=== PATIENT | female | born 1950 ===

== ENCOUNTER 2016-11-10 12:26 | Inpatient (IN) | payer MEDICARE, OTHER ==
[2016-11-10] MEDS ORDERED: ALPRAZolam TAB* 0.25 MG PO PRN (16:44)
--- NOTE | 2016-11-10 19:21 | PN ---
Hospitalist Progress Note HOSPITALIST ADDENDUM Case reviewed and d/w A. Felipe ABEL. Case was accepted in transfer from [facility]. Mrs. Botello presented with c/o dizziness and episodes of unresponsiveness, transferred for seizure w/ u. Will pursue both syncope and seizure w/u at this time. Aware of great emotional burden (patient recently lost her ) that may be worsening her symptoms.
[2016-11-10 19:44] LABS: Hematocrit 41 % (35-47); Hemoglobin 13.7 g/dl (12.0-16.0); Mean Corpuscular HGB Conc 33 g/dl (31-36); Mean Corpuscular Hemoglobin 31 pg (27-31); Mean Corpuscular Volume 95 fL (80-97); Mean Platelet Volume 8 um3 (7.4-10.4); Red Blood Count 4.38 10^6/ul (4.0-5.4); Red Cell Distribution Width 14 % (10.5-15); White Blood Count 6.9 10^3/ul (3.5-10.8)
[2016-11-10 20:06] LABS: BUN/Creatinine Ratio 17.6 (8-20); Calcium 9.2 mg/dL (8.6-10.3); EGFR African American 101.3 (>60); EGFR Non-African American 78.8 (>60); Potassium 3.9 mmol/L (3.5-5.0)
[2016-11-10 20:09] LABS: Troponin I 0.01 ng/mL (<0.04)
--- NOTE | 2016-11-10 21:01 | RAD ---
HISTORY: Severe dizziness and syncope COMPARISONS: None TECHNIQUE: The following sequences were obtained of the head: Sagittal T1-weighted images, axial T2-weighted images, axial FLAIR images, axial susceptibility weighted images, axial T1-weighted images. Additionally, axial diffusion-weighted images were obtained with calculated apparent diffusion coefficients. FINDINGS: HEMORRHAGE/INFARCT: There is no hemorrhage or acute infarct. MASSES/SHIFT: There is no mass or shift. EXTRA-AXIAL SPACES/MENINGES: There are no extra-axial fluid collections. SULCI AND VENTRICLES: The sulci and ventricles are normal in size and position for the patient's stated age. CEREBRUM: There are multiple scattered small foci of elevated T2/FLAIR signal within the periventricular and subcortical white matter. BRAINSTEM: There is elevated T2/FLAIR signal within the pontine white matter. CEREBELLUM: There are no focal parenchymal abnormalities. The cerebellar tonsils are normal in size and position. SELLA: The sella is normal. PINEAL: The pineal region is clear. CP ANGLE/TEMPORAL BONES: The labyrinthine structures are grossly normal. VESSELS: Normal flow-voids are noted within the visualized vertebral vasculature. DIFFUSION ABNORMALITIES: There are no diffusion abnormalities. PARANASAL SINUSES/MASTOIDS: The paranasal sinuses are clear. ORBITS: The orbits are unremarkable. BONES AND SOFT TISSUE: No bone or soft tissue abnormalities are noted. OTHER: None IMPRESSION: THERE ARE MULTIPLE FOCI OF ELEVATED T2/FLAIR SIGNAL WITHIN THE PERIVENTRICULAR, SUBCORTICAL, AND PONTINE WHITE MATTER. WHILE THESE FINDINGS ARE NONSPECIFIC, THEY CAN BE SEEN THE SEQUELA OF PREVIOUS INFECTION OR INFLAMMATION, AND CHRONIC SMALL VESSEL ISCHEMIA. DEMYELINATING DISEASE IS ALSO WITHIN THE DIFFERENTIAL, BUT IS CONSIDERED LESS LIKELY IN THE ABSENCE OF THE APPROPRIATE CLINICAL PRESENTATION.
[2016-11-10] MEDS: Venlafaxine EXT RELEASE CAP* 37.5 MG PO SCH (21:25)
[2016-11-10] MEDS: Enoxaparin(*) 40 MG/0.4 ML SYR SUBCUT SCH (22:05)
[2016-11-10] MEDS: Iohexol 350* (CONTRAST) 500 ML MDV IV ONE ×2 (22:36→23:08)
[2016-11-10] MEDS ORDERED: Iohexol 350* (CONTRAST) 500 ML MDV IV ONE (22:55)
--- NOTE | 2016-11-10 22:56 | PN ---
Progress Note - Progress Note Note: Called to CT scanner for ABC alert for this inpatient, transferred from [place] for recurrent LOC. Apparently became unresponsive after contrast administration. She had spontaneous radial pulses, respirations of normal rate , and somewhat rhythmic vertical nystagmus for 60 seconds on my arrival. Blood glucose and vitals were all found to be WNL. Loaded on to stretcher to be returned to the floor, Dr. Simon of the medicine service arrived to assume/ continue care of this patient. This presentation thought by medicine to be similar to prior presentations.
--- NOTE | 2016-11-10 23:08 | RAD ---
HISTORY: Severe dizziness and syncope COMPARISONS: MRI of the brain dated November 10, 2016 TECHNIQUE: Multiple contiguous axial CT scans were obtained of the head before and after and of the neck After the administration of nonionic intravenous contrast timed to the systemic arterial phase of contrast enhancement. Coronal and sagittal multiplanar reformations are submitted for review. Multiple 3-D maximum intensity projection reconstructions are also submitted for review. FINDINGS: CTA NECK: AORTIC ARCH: There is a normal three-vessel branching pattern of the aortic arch. There is no ostial or proximal stenosis of the cephalic great vessels. RIGHT VERTEBRAL ARTERY: The right vertebral artery is patent along its course, without stenosis. LEFT VERTEBRAL ARTERY: The left vertebral artery is patent along its course, without stenosis. DOMINANCE: The right vertebral artery is dominant. RIGHT COMMON CAROTID ARTERY: The right common carotid artery is patent. The right carotid bifurcation occurs at C3-C4 RIGHT INTERNAL CAROTID ARTERY: There is atheromatous disease of the right carotid bifurcation, with approximately 30% short segment right internal carotid artery stenosis by NASCET criteria. RIGHT EXTERNAL CAROTID ARTERY: The right external carotid artery is unremarkable. LEFT COMMON CAROTID ARTERY: The left common carotid artery is patent. The left carotid bifurcation occurs at C3-C4 LEFT INTERNAL CAROTID ARTERY: There is atheromatous disease of the left carotid bifurcation, with approximately 40% short segment left internal carotid artery stenosis by NASCET criteria. LEFT EXTERNAL CAROTID ARTERY: The left external carotid artery is unremarkable. VENOUS CIRCULATION: The venous system is unremarkable. SALIVARY GLANDS: The parotid glands, submandibular glands, sublingual glands are normal. NASAL CAVITY/NASOPHARYNX: The nasal cavity and nasopharynx are normal. ORAL CAVITY/OROPHARYNX: The oral cavity and oropharynx are unremarkable. LARYNGEAL APPARATUS/HYPOPHARYNX: The laryngeal apparatus and hypopharynx are normal. UPPER AIRWAY/UPPER ESOPHAGUS: The visualized upper airway and esophagus are normal. LUNG APICES: The lung apices are clear. THYROID GLAND: The thyroid gland is normal. LYMPH NODES: There is no lymphadenopathy by size criteria. BONES AND SOFT TISSUES: No bone or soft tissue abnormalities are noted. CTA HEAD: INTRACRANIAL CIRCULATION: There is calcification of the cavernous segments of internal carotid arteries bilaterally, without significant stenosis. There is no aneurysm, vascular malformation, occlusion, or stenosis of the visualized intracranial circulation. The anterior communicating artery complex is clear. There is a origin of the left posterior cerebral artery. VENOUS CIRCULATION: The venous system is unremarkable. PERFUSION: There is no obvious parenchymal perfusion deficit. HEMORRHAGE/INFARCT: There is no hemorrhage or acute infarct. MASSES/SHIFT: There is no mass or shift. EXTRA-AXIAL SPACES: There are no extra-axial fluid collections. SULCI AND VENTRICLES: The sulci and ventricles are normal in size and position for the patient's stated age. CEREBRUM: There are no focal parenchymal abnormalities. BRAINSTEM: There are no focal parenchymal abnormalities. CEREBELLUM: There are no focal parenchymal abnormalities. PARANASAL SINUSES: The paranasal sinuses are clear. ORBITS: The orbits are unremarkable. BONES AND SOFT TISSUE: No bone or soft tissue abnormalities are noted. OTHER: There is no abnormal enhancement. IMPRESSION: 1. ATHEROMATOUS DISEASE. 2. THIS RESULTS IN BILATERAL INTERNAL CAROTID ARTERY STENOSIS MEASURING LESS THAN 50% BY NASCET CRITERIA. 3. NO ANEURYSM, VASCULAR MALFORMATION, OCCLUSION, OR STENOSIS OF THE VISUALIZED INTRACRANIAL CIRCULATION. CPT II Codes: 3100F
--- NOTE | 2016-11-11 01:46 | HP ---
ADMISSION HISTORY AND PHYSICAL: DATE OF ADMISSION: 11/10/16 PRIMARY CARE PROVIDER: Not listed. ADMITTING PROVIDER: PAGE Zuleta SUPERVISING PHYSICIAN: Amrita Walters MD* (report dictated by PAGE Zuleta). CHIEF COMPLAINT: Dizziness and syncope. HISTORY OF PRESENT ILLNESS: This is a 66-year-old female with a history of depression and IBS who was transferred from [facility] for recurrent episodes of dizziness, chest pain, and syncope. 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 Initial imaging including a CT of the brain, EKG, and preliminary labs were unremarkable and the patient was admitted for observation. She had no changes on telemetry, but was noted to be profoundly hypertensive. She was initially treated with clonidine and atenolol for her blood pressure management. Chest x- ray was also noted to be unremarkable and her recurrent troponins and repeat EKGs noted no changes. During the patient's time at [facility], she continued to have intermittent episodes of severe chest pain and at least 2 syncopal episodes. She was on telemetry during these episodes and there were no changes noted. The patient was transferred from [facility] for additional workup and speciality involvement. The patient unfortunately lost her partner of over 30 years a few months ago and has been struggling with his . She has been eating and drinking a very little and states that she has been having the symptoms described above since the time of his . She has been profoundly dizzy even at rest and has been having intermittent episodes of chest pain that lasts anywhere from 1 to 2 hours. They are generally substernal in nature and did not radiate. She does have some associated shortness of breath. She is unable to give any information in terms of how the chest pain maybe revoked or relieved. The patient was seen by her primary care provider about 6 weeks ago and started on Celexa for her depression. She did not note any improvement in her symptoms or her depression, but did state that it was causing sedation for her. While at [facility], her Celexa was discontinued and she was started on Effexor as well as p.r.n. Xanax. Also, she was started on atenolol and p.r.n. clonidine for blood pressure management. At the time of evaluation, the patient is complaining of ongoing chest pain and dizziness. She is able to communicate effectively; however, and she states that her symptoms are manageable. PAST MEDICAL HISTORY: Depression. PAST SURGICAL HISTORY: Cholecystectomy. HOME MEDICATIONS: Celexa 20 mg daily. MEDICATIONS FROM [facility]: Include: 1. Xanax 0.25 mg p.o. q.8 hours p.r.n. anxiety. 2. Aspirin 81 mg p.o. daily. 3. Atenolol 25 mg p.o. daily. 4. Effexor 37.5 mg p.o. b.i.d. FAMILY HISTORY: Father had a history of pancreatic cancer and mother of an acute [place]. SOCIAL HISTORY: The patient recently lost her domestic partner of over 30 years. No history of smoking or regular alcohol consumption. She lives at home alone at this time. REVIEW OF SYSTEMS: The patient denies any other associated symptoms including palpitations, cough, abdominal pain, nausea, vomiting, diarrhea, recent fevers, dramatic changes in weight, orthopnea, lower extremity edema, or abnormal rashes. PHYSICAL EXAMINATION GENERAL: This is a depressed-appearing middle-aged female, in no acute distress. She appears profoundly fatigued, lying in a dark room, and is minimally interactive, but does comply with all history questions and does provide more complex answers. VITAL SIGNS: Temperature 98.7 degrees Fahrenheit, pulse 69 beats per minute, respiratory rate 16 per minute, oxygen saturation 96% on room air, and blood pressure 165/62 mmHg. HEENT: Head is normocephalic and atraumatic. Mucous membranes are pink and moist. RESPIRATORY: Lungs are clear to auscultation without wheezes, crackles, or rhonchi. CARDIOVASCULAR: Heart has a regular rate and rhythm without murmurs, rubs, or gallops. ABDOMEN: Abdomen is soft and nontender to palpation. EXTREMITIES: Trace lower extremity edema is appreciated bilaterally. PSYCH: The patient is alert and appropriately oriented. SKIN: Limited exam, shows no rashes or lesions. DIAGNOSTIC STUDIES/LAB DATA: LABORATORY EVALUATION: Reviewed. Labs from [facility] from earlier today, which were largely unremarkable. The repeat labs are pending at this time. White blood cell count of 4700; hemoglobin of 12.3 g/dL; and platelet count of 163,000. INR normal at 0.9. Urinalysis from 11/07/16 is within normal limits. Basic metabolic panel from yesterday, 11/09/16, is unremarkable with a sodium of 140 mmol/L, potassium 3.9 mmol/L, BUN 15, creatinine 0.9, estimated GFR of 67 , rate of glucose was 201 g/dL, and calcium is 8.5. Toxicology screen at admission was also noted to be negative. IMAGING: CT of the head from [facility] was read as negative. Chest x- ray was also read as negative. These were not personally reviewed. EKG was reported as negative, but I do not see a tracing to refer to. ASSESSMENT AND PLAN: This is a 66-year-old female with a history of depression who was transferred from [facility] due to complaints of dizziness, chest pain, and frequent syncope. Etiology is not entirely clear, but she is suffering from severe depression and anxiety since the passing of her long-term domestic partner. 1. Syncope with recurrent dizziness and chest pain - preliminary evaluation was completed at [facility] including an EKG and troponin both of which were negative. We will order an echocardiogram, CTA of the chest as well as a CTA of the head and neck, and an MRI of the brain. We will also check orthostatic vital signs. We could consider neuro and/or cardiology consult depending on results. Labs were also ordered and currently pending including CBC , comprehensive metabolic panel, hemoglobin A1c, troponin, and D-dimer. 2. Hyperglycemia - random glucose from yesterday was noted to bed elevated. We will check a hemoglobin A1c to evaluate for chronic hyperglycemia indicating diabetes. 3. Depression and anxiety - suspect that her depression and anxiety is having a significant influence over her presenting symptoms. She was recently switched from Celexa to Effexor and does not seem to have any adverse effects from this and we will plan to continue at this time. The patient does not display any suicidal or homicidal ideations. No need for urgent psychiatric evaluation. 4. Hypertension - the patient has been profoundly hypertensive during her time at [place] [facility] and was treated with atenolol and p.r.n. clonidine. We will choose to use lisinopril instead of atenolol as the atenolol may also contribute to her depression and complaints of fatigue. This may need to be further titrated. 5. Code status - the patient is full code. 6. DVT prophylaxis - the patient will be placed on Lovenox 40 mg subcu daily for DVT prophylaxis and she is at moderate risk. 7. Health care proxy: Unknown. DISPOSITION: The patient is being admitted to our hospital for further evaluation and workup regarding syncope, chest pain, and dizziness after being transferred from [facility], where she was an inpatient there for 3 days. PAGE ZULETA [id number]/[facility] [place] #: [id number] MTDD
--- NOTE | 2016-11-11 07:38 | PN ---
Hospitalist Progress Note HOSPITALIST CAT NOTE CAT called around 7:15AM for unresponsive patient. Mrs. Botello is a 66yo F with PMH of depression, transferred from [facility] yesterday for further work up of episodes of unresponsiveness. She had a CAT last night for one episode that happened during CT brain. As per RN report , patient was unresponsive for 1 hour last night and later on woke up with no neurological deficits. Unclear when this episode started. This AM, her RN went to greet her and noticed patient was unresponsive, even to pain. Patient evaluated at bedside. Lying in bed with no grimacing, twitching, shaking or any other movements. Breathing is calm and easy. Did not respond to voice, touch or pain. HEENT: eyes closed, with palpebral resistance when I tried to open her eyes, no nystagmus, pupils are equal at 4mm and reactive to light. CVS: normal S1 and S2, RRR. Chest: BS+ bilaterally with no added sounds. Abd: soft, NT, BS+. Extremities: no edema. Neuro: unresponsive, does not follow commands, no Babinski. VS: 95/71 65 14 100% RA Glucose 112 Telemetry showed NSR at 66bpm during this episode. A/P: Episodes of unresponsiveness. - Stat EEG to r/o seizure activity during episode. - Neurology consult requested with Dr. Sargent. - Neuro checks. - Seizure precautions. - Will move patient to room closer to nursing station.
[2016-11-11] MEDS: Aspirin Low Dose CHEW TAB* 81 MG PO SCH (08:44)
[2016-11-11] MEDS: Lisinopril TAB* 10 MG PO SCH (08:44)
[2016-11-11] MEDS ORDERED: Iohexol 350* (CONTRAST) 500 ML MDV IV ONE (09:37)
--- NOTE | 2016-11-11 09:54 | ECHO ---
Patient: EDDI YEAGER [facility] Rec#: [id number] : 1950 Date: 11/11/2016 Age: 66y Height: 165.1 cm / 65.0 in Weight: 87.5 kg / 192.9 lbs Sex: F BSA: 2 Room#: 434 Admit Date#: 11/10/2016 Type: Inpatient Referring: Villa Wang Reading: Surjit Toscano MD Bulldozer Mechanic: Fany Haque RN RDCS Transthoracic Echocardiogram Indication: Syncope, chest pain BP: 90/70 HR: 58 Rhythm: NSR Findings History: Depression, recurrent syncope with chest pain and dizziness Technical Comments: The study is technically limited due to poor apical windows. The study is technically limited due to patient body habitus. Completed at 0855. Left Ventricle: The left ventricular chamber size is normal. Global left ventricular wall motion and contractility are within normal limits. There is normal left ventricular systolic function. The estimated ejection fraction is 60-65%. Normal left ventricular diastolic filling is observed. Left Atrium: The left atrial chamber size is normal. Right Ventricle: The right ventricular chamber size and systolic function are within normal limits. Right Atrium: The right atrial cavity size is normal. Aortic Valve: The aortic valve is trileaflet. The aortic valve leaflets are mildly thickened. There is no evidence of aortic regurgitation. There is no evidence of aortic stenosis. Mitral Valve: The mitral valve leaflets are mildly thickened. There is a trace of mitral regurgitation. There is no evidence of mitral stenosis. Tricuspid Valve: The tricuspid valve leaflets are normal. There is no evidence of tricuspid valve regurgitation. Pulmonic Valve: The pulmonic valve structure is not well visualized. There is a trace pulmonic regurgitation. There is no pulmonic stenosis. Pericardium: There is no significant pericardial effusion. A pericardial fat pad is visualized. Aorta: There is no dilatation of the ascending aorta. There is no dilatation of the aortic arch. The aortic root is normal in size. Pulmonary Artery: The main pulmonary artery is not well visualized. Venous: The inferior vena cava appears normal in size. There is less than 50% respiratory change in the inferior vena cava dimension. Summary: There was not any prior study for comparison. Conclusions The left ventricular chamber size is normal. The estimated ejection fraction is 60-65%. There is a trace of mitral regurgitation. There is a trace pulmonic regurgitation. There was not any prior study for comparison. Measurements Name Value Normal Range RVDdMajor (2D) 2.9 cm (2.2 - 4.4) RAd ISD 4CH 4.8 cm (3.4 - 4.9) RA (A4C)W 3.8 cm (2.9 - 4.6) IVSd (2D) 1 cm (0.6 - 1) LVPWd (2D) 1 cm (0.6 - 1) LVIDd (2D) 4.1 cm (3.6 - 5.4) LVIDs (2D) 2.8 cm - LV FS (2D) 33 % (25 - 45) Aortic Annulus 1.9 cm (1.4 - 2.6) Ao root diameter (2D) 2.5 cm (2.1 - 3.5) Ascending Ao 2.3 cm (2.1 - 3.4) Aortic arch 2.1 cm (1.8 - 3.4) LA dimension (AP) 2D 3.1 cm (2.3 - 3.8) LAd ISD 4CH 5 cm (2.9 - 5.3) LA ISD 4CH W 4 cm (2.5 - 4.5) Name Value Normal Range MV E-wave Vmax 0.7 m/sec - MV deceleration time 240 msec - MV A-wave Vmax 0.88 m/sec - MV E:A ratio 0.8 ratio - LV septal e' Vmax 0.07 m/sec - LV lateral e' Vmax 0.1 m/sec - LV E:e' septal ratio 10 ratio - LV E:e' lateral ratio 7 ratio - Name Value Normal Range AV Vmax 1.7 m/sec - LVOT Vmax 1.2 m/sec - SIDNEY Vmax 0.6 m/sec - Name Value Normal Range IVC diameter 1.8 cm - Name Value Normal Range PV Vmax 0.91 m/sec -
--- NOTE | 2016-11-11 10:29 | RAD ---
INDICATION: Chest pain. COMPARISON: None. TECHNIQUE: Multidetector CT images were obtained from the lung apices to the upper abdomen with 75 mL Omnipaque 350 IV contrast. Pulmonary angiogram protocol. Multiplanar reformation including with maximum intensity projection. REPORT: Clear lungs and pleural spaces. Negative for pneumothorax. 0.5 cm short axis prevascular lymph node within normal size limits. 0.8 cm short axis subcarinal lymph node within normal size limits. Negative for thoracic lymphadenopathy. Negative for cardiomegaly or pericardial effusion. Normal diameter thoracic aorta with minimal atherosclerotic plaque. Negative for dissection of the thoracic aorta. No filling defects are identified from the main to the subsegmental pulmonary arteries to indicate presence of a pulmonary embolism. Unremarkable Limited images through the upper abdomen. Negative for suspicious thoracic osseous lesions. IMPRESSION: No evidence for pulmonary embolism or other acute intrathoracic disease.
--- NOTE | 2016-11-11 13:14 | PN ---
Subjective Date of Service: 11/11/16 Interval History: This is a 66 yo female with h/o depression transferred from [facility] for recurrent episodes of LOC with c/o dizziness and chest pain. EKG, trop, CT head , and CXR neg at [place]. Ordered complete neuro and cardiac workup upon arrival last night that so far has been unrevealing. Patient has had multiple unresponsive episodes (at least 3) overnight. EEG completed during one this am which is neg for epileptic activity. Patient has been complaining of r sided pain, but no CP today but has been persistently dizzy. Objective Active Medications: Alprazolam (Xanax Tab*) 0.25 mg PO Q8H PRN PRN Reason: ANXIETY Aspirin (Aspirin Low Dose Tab*) 81 mg PO DAILY [facility] Last Admin: 11/11/16 08:44 Dose: 81 mg Enoxaparin Sodium (Lovenox(*)) 40 mg SUBCUT Q24H [facility] Last Admin: 11/10/16 22:05 Dose: 40 mg Lisinopril (Prinivil Tab*) 10 mg PO DAILY [facility] Last Admin: 11/11/16 08:44 Dose: 10 mg Tramadol HCl (Ultram*) 50 mg PO Q6H PRN PRN Reason: PAIN Venlafaxine HCl (Effexor Xr Cap*) 37.5 mg PO BID [facility] Last Admin: 11/10/16 21:25 Dose: Not Given Vital Signs: Temp Pulse Resp BP Pulse Ox 99.2 F 68 16 150/80 99 11/11/16 11:20 11/11/16 11:20 11/11/16 11:20 11/11/16 11:42 11/11/16 11:20 Oxygen Devices in Use Now: None Appearance: Patient is lying comfortably in bed, unresponsive to stimuli Neck: NL Appearance and Movements; NL JVP Respiratory: Symmetrical Chest Expansion and Respiratory Effort, Clear to Auscultation Cardiovascular: NL Sounds; No Murmurs; No JVD, RRR Abdominal: NL Sounds; No Tenderness; No Distention Extremities: No Edema Skin: No Rash or Ulcers Neurological: - - no tremor, some resistance to ROM and manipulation, otherwise unresponsive Result Diagrams: 11/10/16 19:20 11/10/16 19:20 Diagnostic Imaging: CTA head/neck - bilateral IC stenosis, <50%, otherwise nl CTA chest - no PE or other abnormality EEG - neg TTE - unremarkable, LVEF - 50-55%, no valvular dz MRI brain - chronic ischemic changes v demyelinating dz EKG Data: NSR Assess/Plan/Problems-Billing Assessment: This is a 66 yo female with h/o depression transferred from [place] for recurrent episodes of LOC with dizziness and CP. - Patient Problems (1) Syncope Comment: Unclear etiology, w/u has been negative including MRI brain, CTA head, neck and chest, echo and EEG Dr Sargent consulted from neurology who does not believe there is a neurologic explanation for these episodes, no evidence of cardiac compromise or a metabolic process Symptoms started after her passing of her , suspect these may be psychogenic in origin, requested psychiatric consultation (2) Chest pain Comment: No evidence of ACS or other life threatening condition (3) Dizziness (4) Depression Comment: Started on Celexa ~4 weeks ago without improvement and was c/o fatigue Switched to Effexor ~3 days ago (5) Hypertension Comment: Still moderately hypertensive Cont lisinopril (6) Hyperglycemia Comment: Noted random glucose >200 mg/dl from [facility] labs HgbA1c 5.9% Status and Disposition: W/u neg thus far. Pending psychiatric consult, suspect psychogenic component
[2016-11-11] MEDS: traMADol TAB* 50 MG PO PRN (13:22)
--- NOTE | 2016-11-11 14:56 | RAD ---
INDICATION: Right knee injury. TECHNIQUE: 4 views of the right knee were obtained. FINDINGS: The bones are in normal alignment. No joint effusion or fracture is seen. There is moderate to severe joint space narrowing and hypertrophic change present around the medial compartment consistent with moderate to severe osteoarthritic change. There is mild osteoarthritic change in the patellofemoral and lateral compartments. IMPRESSION: 1. NO EVIDENCE FOR FRACTURE. 2. MODERATE TO SEVERE OSTEOARTHRITIC CHANGE.
--- NOTE | 2016-11-11 16:52 | CONS ---
CONSULTATION NOTE: DATE: 11/11/2016. PATIENT OF: Dr. Walters. HISTORY: This is a 66-year-old woman I am asked to evaluate for unresponsive episodes. Of note, her long-term boyfriend of 32 years within the past month and she has been, by her own words very depressed by this and worried as well about financial and other practical issues. 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 She had a negative workup there including CT scan of the brain and EKG and was found to be significantly hypertensive. She has had continued intermittent chest pain and at least 2 unresponsive episodes and she was transferred here yesterday and has had least 2 unresponsive episodes here including one during EEG where it appeared she was just asleep in bed but not responsive to vigorous noxious stimulation including sternal rub. PAST MEDICAL HISTORY: Her past history is significant for depression, cholecystectomy. MEDICATIONS: Her medications at home include Celexa 20 mg daily. She was also at [facility] on: Aspirin 81 mg daily. Atenolol 25 daily. Effexor 37.5 b.i.d. Xanax 0.25. FAMILY HISTORY: Father had pancreatic cancer and the mother of an acute MD. SOCIAL HISTORY: She does not smoke, use drugs or alcohol. REVIEW OF SYSTEMS: Negative in all 14 spheres other than the HPI. PHYSICAL EXAM: Temperature 98.2, pulse 60, respirations 15, blood pressure currently 90/71. She is alert and oriented with normal speech and comprehension. Cranial nerves II through XII were intact. Fundi were benign. Motor exam revealed normal tone. Strength, coordination and sensation intact to light touch. Reflexes were 2 and equal. Downgoing toes. Chest: Clear. Cardiovascular: Regular rate and rhythm. Abdomen is soft with positive bowel sounds. There is no rash or edema. DIAGNOSTIC STUDIES/LAB DATA: She had an MRI scan showing some diffuse white matter disease. Her EEG during an episode where she was unresponsive to noxious stimuli including sternal rub and then towards the end of EEG woke up and there was no change in background. It appeared to be normal, awake, alpha rhythm throughout the tracing. Her CTA showed some less than 50% carotid stenosis bilaterally and intracranially it appeared normal. CBC was normal. D-dimer was 289. BMP was normal other than a glucose of 128 initially. Toxicology at [facility] was negative. INR was normal at [facility]. PLAN: Her current unresponsive episodes by description and also by EEG would be most consistent with a psychogenic etiology and given her depression, it would be reasonable to have the Psych involved and I would not treat for seizures or other issues. Her other neurological concern is her MRI scan, which shows white matter disease of a nonspecific pattern more likely to be some chronic vascular disease or possibly demyelination. She has no history of demyelination and in the absence of clinical history, I do not think she has MS. I will check vitamin D level, sed rate, CANDY, anticardiolipin antibody for things that would predispose to edema or could mimic an MS picture. I would also continue her on the aspirin and sort out whether she has ongoing hypertension. Thank you for sharing her case. [id number]/[facility] #: [id number] GRETCHEN
[2016-11-11] MEDS ORDERED: Morphine INJ* 4 MG/ML 1 ML CARPUJECT IV PRN (17:10)
[2016-11-11] MEDS ORDERED: Ondansetron INJ* 2 MG/ML VIAL IV PRN (17:11)
--- NOTE | 2016-11-11 17:32 | CONS ---
CONSULTATION REPORT: DATE OF CONSULT: 11/11/2016. ATTENDING PHYSICIAN: PAGE Spann CONSULTING PROVIDER: Logan Palmer MD, Psychiatry. REASON FOR CONSULT: The patient admitted with unexplained syncopal events. Question is to rule out psychiatric etiology for physical symptoms. HISTORY OF PRESENT ILLNESS: The patient is a 66-year-old single white female with no prior psychiatric history, who was transferred from [facility] on 11/10/16 for further diagnostic workup of unexplained syncopal events. The patient is reporting that for the past month and a half, she has been having almost daily episodes of dizziness followed by chest pain and instances where she loses consciousness. Since admission to the hospital, she has had an extensive workup including EEG, electrocardiogram, head CT and other diagnostic studies, which have at this point ruled out organicity. The further history that I am gathering from the patient is that her boyfriend, with whom she was together with for 32 years, unexpectedly of a heart attack on September 20. 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 When he , she was shocked and allegedly stopped eating and lost 30 pounds within the first month, although since then her appetite has somewhat stabilized. The patient goes on to state that in early October she did have some brief suicidal ideations when looking at his multiple bottles of pills, she had thoughts of overdosing on his medications. Some mutual friends of theirs actually went to their home and got rid of these medications. The patient does admit to me that she has 2 weapons at home, one is a shotgun and one is an antique musket. She does deny at this point having any further suicidal ideations and has not since early October. A further complicating stressor is that she has financial problems now that he is gone; she can no longer rely on his income and they have several unpaid debts. She does have support in the area including her boyfriend's 5 children. She also has 1 brother who lives locally who is supportive, as well as several friends who used to travel with her between [place] and [place] with whom she has been regularly visiting. When asked about symptoms of depression, she does endorse dysthymia, difficulty maintaining sleep, anhedonia, guilt over not doing more for her boyfriend, lack of energy, poor concentration, decreased appetite, psychomotor retardation, and anxiety. Once again, she denies suicidal or homicidal ideations. PAST PSYCHIATRIC HISTORY: The patient never had any history of psychiatric treatment until approximately 6 weeks ago when she saw her primary care provider who recommended she start taking Celexa. She has taken it faithfully but indicates that she never felt much benefit from it and did experience unwelcome sedation. It is notable that this was discontinued at [facility] and they placed her on a trial of Effexor 37.5 mg p.o. daily. The patient has no formal history of suicide attempts, has never been violent. She denies history of abuse. Denies history of traumatic brain injury. PAST MEDICAL HISTORY: The patient has a history of cholecystectomy and irritable bowel syndrome. SUBSTANCE ABUSE HISTORY: She used to smoke cigarettes in high school but has not since the early 70s. She does not abuse alcohol or illicit drugs. FAMILY HISTORY: Positive for some type of emotional breakdown that the patient' s mother had several years ago when her stepfather . This was in approximately 2004. The patient's mother has since . SOCIAL HISTORY: The patient grew up in [place], which is in [facility]. She currently lives in [place], [place]. She was never and never had children. She graduated high school and then went to work for several places, most recently [employer], which is where she met her boyfriend. The two of them were together for 32 years as previously mentioned. The patient's parents were never . She is the oldest of 4 children. She has no history of legal problems, service. She is not amish. She does have 2 dogs at home that she enjoys taking care of. Prior to her boyfriend's , they used to enjoy fishing and camping together. MENTAL STATUS EXAM: The patient is an aging white female, who is lying supine in bed, hooked up to a pulse oximeter. She is calm, polite, cooperative, and it is fairly easy to establish a rapport with her. At times, she does smile and laugh and her sense of humor does seem to be intact. Speech has a normal rate, tone, and volume. Mood is depressed with a constricted affect. Thought process is linear and goal directed. Thought content is significant for her grief over the loss of her boyfriend. She is denying suicidal or homicidal ideation. She denies auditory or visual hallucinations. Insight and judgment appear to be fair given her willingness to follow through with antidepressant therapy. Cognitively, she is awake and alert with what appeared to be an average intellect. DIAGNOSES: [place] I: Major depressive disorder, single episode, severe without psychotic features; Complex Bereavement. [place] II: Deferred. [place] III: Irritable bowel syndrome, history of cholecystectomy, atypical chest pain, syncope of unknown origin. ASSESSMENT: The patient is a 66-year-old single white female with a significant recent loss of her long-term boyfriend, who presents to the hospital with unusual symptoms of dizziness, syncope, and chest pain, which are occurring almost daily. The question is whether these events, which do not appear to be organic might be secondary to a psychiatric problem. It is not unusual in the literature on complex bereavement for people to have similar symptoms. I do believe at this time that she also has major depressive disorder and associated symptoms of anxiety. Recommendations to primary team: The patient is neither suicidal nor homicidal and I do not believe that she would benefit from psychiatric inpatient hospitalization and she is refusing this anyway. I do think that she would benefit from followup treatment. Apparently, she is a resident in [facility] and I think the primary social work staff should arrange followup with mental health counseling and psychotropic management. For the time being, I do not think that alprazolam is a good choice. It is more likely that a longer acting benzodiazepine such as Valium, which can be given either 2.5 or 5 mg on an as-needed basis would be more helpful. I would also recommend increasing Effexor from 37.5 to 75 mg daily as she is more likely to get a therapeutic benefit at this dose. While I think she is psychiatrically safe to go home, I do think she will need support. Both her friends and her brother who are involved are potential sources of support for this patient and I am recommending that social work services contact them. Psychiatry is signing off at this time. My pager number is [phone] if the primary team has any further questions. Once again, thank you for allowing me to participate in the care of this very friendly but very unfortunate patient. [id number]/[facility] #: [id number] GRETCHEN
[2016-11-11] MEDS ORDERED: Diazepam TAB(*) 5 MG PO PRN (18:39)
[2016-11-11] MEDS: Venlafaxine EXT RELEASE CAP* 37.5 MG PO SCH (19:14)
[2016-11-11] MEDS: Enoxaparin(*) 40 MG/0.4 ML SYR SUBCUT SCH (20:06)
[2016-11-12] MEDS: traMADol TAB* 50 MG PO PRN ×4 (00:02→21:42)
--- NOTE | 2016-11-12 00:54 | EEG ---
ELECTROENCEPHALOGRAPHY: DATE: 11/11/2016. PATIENT OF: Amrita Walters MD HISTORY: This is a 66-year-old woman being evaluated for recent repeated episodes of unresponsiveness. This study was done to rule out seizures. MEDICATIONS: Include: 1. Aspirin. 2. Prinivil. 3. Effexor. 4. Lovenox. 5. Xanax. 6. Ultram. INTERPRETATION: During the start of this tracing, the patient is described by the materials engineering technician as unresponsive with eyes closed and not moving including to noxious stim; however, during the portions of the tracing where the patient appeared unresponsive clinically, background cerebral activity consisted of moderate amplitude posterior dominant 8 Hz rhythm. During the tracing, the patient appeared to wake up and talk. There was no change in background cerebral activity during this tracing, but it did not matter what the apparent clinical status of the patient was. The patient never fell asleep. No activation procedures were done. No epileptiform potentials, focal abnormalities, or major asymmetries of background are noted. IMPRESSION: This EEG demonstrates normal awake background both during the time towards the end of tracing where the patient appears awake as well as during the time when the patient did not open eyes and appeared unresponsive to noxious stimulation. [id number]/[facility] #: [id number] [facility]
[2016-11-12] MEDS: Lisinopril TAB* 10 MG PO SCH (07:32)
[2016-11-12] MEDS: Venlafaxine EXT RELEASE CAP* 75 MG PO SCH (07:32)
[2016-11-12] MEDS: Aspirin Low Dose CHEW TAB* 81 MG PO SCH (07:32)
[2016-11-12] MEDS ORDERED: Diazepam TAB(*) 5 MG PO ONE (09:00)
[2016-11-12] MEDS: Morphine INJ* 2 MG/ML 1 ML CARPUJECT IV PRN ×2 (10:35→16:05)
--- NOTE | 2016-11-12 12:17 | RAD ---
INDICATION: Abdominal pain. COMPARISON: There are no prior studies available for comparison. TECHNIQUE: Frontal supine films of the abdomen were obtained. FINDINGS: The small bowel and colon appear nondistended. Contrast is seen within the urinary bladder from a prior CT angiogram of the chest which was performed one day earlier. IMPRESSION: NO EVIDENCE FOR OBSTRUCTION.
[2016-11-12] MEDS ORDERED: Iohexol 300* (CONTRAST) 10 ML SDV IV ONE (13:27)
[2016-11-12] MEDS ORDERED: Docusate CAP* 100 MG PO PRN (16:43)
--- NOTE | 2016-11-12 16:48 | PN ---
Subjective Date of Service: 11/12/16 Interval History: Patient continues to complain of dizziness. Some mild CP. She had 2 unresponsive episodes overnight, none today. She has been complaining of severe cramping abdominal pain intermittently. No n/v. The abdominal pain is a new complaint starting yesterday afternoon. She states it is similar to her IBS symptoms, but more severe. Objective Active Medications: Aspirin (Aspirin Low Dose Tab*) 81 mg PO DAILY [facility] Last Admin: 11/12/16 07:32 Dose: 81 mg Diazepam (Valium Tab(*)) 5 mg PO Q6H PRN PRN Reason: ANXIETY Enoxaparin Sodium (Lovenox(*)) 40 mg SUBCUT Q24H [facility] Last Admin: 11/11/16 20:06 Dose: 40 mg Lisinopril (Prinivil Tab*) 10 mg PO DAILY [facility] Last Admin: 11/12/16 07:32 Dose: 10 mg Morphine Sulfate (Morphine Inj (Syringe)*) 2 mg IV Q4H PRN PRN Reason: PAIN - MILD Last Admin: 11/12/16 16:05 Dose: 2 mg Ondansetron HCl (Zofran Inj*) 4 mg IV Q4H PRN PRN Reason: NAUSEA Tramadol HCl (Ultram*) 50 mg PO Q6H PRN PRN Reason: PAIN Last Admin: 11/12/16 13:06 Dose: 50 mg Venlafaxine HCl (Effexor Xr Cap*) 75 mg PO DAILY [facility] Last Admin: 11/12/16 07:32 Dose: 75 mg Vital Signs: Temp Pulse Resp BP Pulse Ox 97.9 F 84 16 130/51 94 11/12/16 15:31 11/12/16 15:00 11/12/16 16:05 11/12/16 15:00 11/12/16 15:00 Oxygen Devices in Use Now: None Appearance: Well appearing, brighter affect Respiratory: Symmetrical Chest Expansion and Respiratory Effort Cardiovascular: NL Sounds; No Murmurs; No JVD, RRR Abdominal: NL Sounds; No Tenderness; No Distention Extremities: No Edema Skin: No Rash or Ulcers Neurological: Alert and Oriented x 3 Result Diagrams: 11/10/16 19:20 11/10/16 19:20 Diagnostic Imaging: CTA head/neck - bilateral IC stenosis, <50%, otherwise nl CTA chest - no PE or other abnormality EEG - neg TTE - unremarkable, LVEF - 50-55%, no valvular dz MRI brain - chronic ischemic changes v demyelinating dz XR abd - NAD CT abd/pevis - pend EKG Data: NSR Assess/Plan/Problems-Billing Assessment: This is a 66 yo female with h/o depression transferred from [facility] for recurrent episodes of LOC with dizziness and CP. - Patient Problems (1) Syncope Comment: Likely psychogenic, psychiatry recommended increasing Effexor and use of a long acting benzo W/u has been negative including MRI brain, CTA head, neck and chest, echo and EEG Dr Sargent consulted from neurology who does not believe there is a neurologic explanation for these episodes, no evidence of cardiac compromise or a metabolic process Symptoms started after her passing of her Some improvement noted since starting Valium (2) Chest pain Comment: No evidence of ACS or other life threatening condition (3) Dizziness (4) Abdominal pain Comment: Abdominal pain is a new complaint XR of the abd is neg for obstruction CT abd/pelvis pending May be her IBS/constipation (5) Depression Comment: Started on Celexa ~4 weeks ago without improvement and was c/o fatigue Switched to Effexor while at [facility] Psych recommends increasing dose to 75 mg (6) Hypertension Comment: Normotensive today Cont lisinopril (7) Hyperglycemia Comment: Noted random glucose >200 mg/dl from [facility] labs HgbA1c 5.9% Status and Disposition: W/u neg thus far. Appears symptoms are psychiatric in origin. Some improvement today. Patient lives alone and is not safe to return home alone as long as she is having intermittent episodes. One of her step daughters is available to stay with her time piece repairer starting Tuesday and which point she can return home.
--- NOTE | 2016-11-12 16:58 | RAD ---
CLINICAL HISTORY: Severe abdominal pain COMPARISON: KUB dated November 12, 2016 TECHNIQUE: Multiple contiguous axial CT scans were obtained of the abdomen after the administration of intravenous contrast. Coronal and sagittal multiplanar reformations are submitted for review. FINDINGS: LUNG BASES: The lung bases are clear. LIVER: The liver is normal in shape, size, contour, and attenuation. BILE DUCTS: There is no intrahepatic or extrahepatic biliary dilatation. GALLBLADDER: The gallbladder is not seen. The patient is status post cholecystectomy by history. PANCREAS: The pancreas is normal, without mass or ductal dilatation. SPLEEN: Normal in size and appearance. UPPER GI TRACT: Evaluation of the gastrointestinal tract is limited by incomplete gastric distention. The upper GI tract is unremarkable. SMALL BOWEL AND MESENTERY: The small bowel is normal in contour, course, and caliber. There is no obstruction or dilatation. COLON: The colon is normal in contour, course, caliber. There is no pericolonic inflammatory change. ADRENALS: Normal bilaterally. KIDNEYS: The kidneys are normal in shape, size, contour, and axis. There is no hydronephrosis or nephrolithiasis. AORTA: There is mild atherosclerosis of the abdominal aorta. IVC: Unremarkable LYMPH NODES: There is no lymphadenopathy by size criteria. ABDOMINAL WALL: There is a small fat-containing umbilical hernia. BONES AND SOFT TISSUES: Degenerative changes are noted most advanced at L3-L4 OTHER: None IMPRESSION: 1. SMALL FAT-CONTAINING ABDOMINAL HERNIA. 2. STATUS POST TOTAL CYSTECTOMY. 3. NO ACUTE CT PATHOLOGY OF THE VISUALIZED PORTION OF THE ABDOMEN.
[2016-11-12] MEDS: Enoxaparin(*) 40 MG/0.4 ML SYR SUBCUT SCH (19:50)
[2016-11-13] MEDS: traMADol TAB* 50 MG PO PRN ×3 (05:27→18:31)
[2016-11-13 05:37] LABS: BUN/Creatinine Ratio 25.9 (8-20); Calcium 9.7 mg/dL (8.6-10.3); EGFR African American 91.3 (>60); Potassium 4.3 mmol/L (3.5-5.0)
[2016-11-13] MEDS: Lisinopril TAB* 10 MG PO SCH (08:28)
[2016-11-13] MEDS: Aspirin Low Dose CHEW TAB* 81 MG PO SCH (08:28)
[2016-11-13] MEDS: Venlafaxine EXT RELEASE CAP* 75 MG PO SCH (08:28)
[2016-11-13] MEDS: Diazepam TAB(*) 5 MG PO PRN (12:00)
--- NOTE | 2016-11-13 18:07 | PN ---
Subjective Date of Service: 11/13/16 Interval History: . Interviewed and examined patient at bedside; Discussed case with Dr. Tracy; Reviewed previous notes and radiology results; Had full blown panic attack earlier today -- responded well to valium - then ate normal lunch and was walking without difficulty. Psych agrees with valium + effexor as primary treatment strategy at this time, but concern is support (i.e. she needed RN to administer Valium in midst of attack earlier today). Awatiing SW / family support arrangements to be established--will reach out to family later today/tomorrow to arrange. . Family History: Unchanged from Admission Social History: Unchanged from Admission Past Medical History: Unchanged from Admission Objective Active Medications: . Aspirin (Aspirin Low Dose Tab*) 81 mg PO DAILY [facility] Last Admin: 11/13/16 08:28 Dose: 81 mg Diazepam (Valium Tab(*)) 5 mg PO Q6H PRN PRN Reason: ANXIETY Last Admin: 11/13/16 12:00 Dose: 5 mg Docusate Sodium (Colace Cap*) 100 mg PO BID PRN PRN Reason: CONSTIPATION Enoxaparin Sodium (Lovenox(*)) 40 mg SUBCUT Q24H [facility] Last Admin: 11/12/16 19:50 Dose: 40 mg Lisinopril (Prinivil Tab*) 10 mg PO DAILY [facility] Last Admin: 11/13/16 08:28 Dose: 10 mg Ondansetron HCl (Zofran Inj*) 4 mg IV Q4H PRN PRN Reason: NAUSEA Last Admin: 11/13/16 15:44 Dose: 4 mg Tramadol HCl (Ultram*) 50 mg PO Q6H PRN PRN Reason: PAIN Last Admin: 11/13/16 11:52 Dose: 50 mg Venlafaxine HCl (Effexor Xr Cap*) 75 mg PO DAILY [facility] Last Admin: 11/13/16 08:28 Dose: 75 mg . Vital Signs 11/12/16 11/12/16 11/12/16 19:38 20:00 21:42 Temperature 97.3 F Pulse Rate 70 Respiratory 18 16 16 Rate Blood Pressure 145/42 (mmHg) O2 Sat by Pulse 94 Oximetry 11/12/16 11/12/16 11/13/16 23:27 23:42 01:42 Temperature 98.0 F Pulse Rate 65 Respiratory 16 16 18 Rate Blood Pressure 134/47 (mmHg) O2 Sat by Pulse 94 Oximetry Oxygen Devices in Use Now: None Appearance: NAD most of time, but intense panic attack witness with sweating and chest pain -- relieved by valium. Eyes: No Scleral Icterus Ears/Nose/Mouth/Throat: Clear Oropharnyx Neck: Trachea Midline Respiratory: Symmetrical Chest Expansion and Respiratory Effort Cardiovascular: NL Sounds; No Murmurs; No JVD Abdominal: NL Sounds; No Tenderness; No Distention Lymphatic: No Cervical Adenopathy Extremities: No Edema Skin: No Rash or Ulcers Neurological: Alert and Oriented x 3 Lines/Tubes/Other Access: Clean, Dry and Intact Peripheral IV Nutrition: Taking PO's Result Diagrams: 11/10/16 19:20 11/13/16 04:48 Diagnostic Imaging: CTA head/neck - bilateral IC stenosis, <50%, otherwise nl CTA chest - no PE or other abnormality EEG - neg TTE - unremarkable, LVEF - 50-55%, no valvular dz MRI brain - chronic ischemic changes v demyelinating dz (neurology feels this is unlikely) XR abd - NAD CT abd/pevis - NAD EKG Data: NSR Assess/Plan/Problems-Billing . Assessment: This is a 66 yo female with h/o depression transferred from [facility] for recurrent episodes of LOC with dizziness and CP. Given all data, this seems to be a psychiatric response to recent loss of long time boyfriend (of 30+ years). 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 - Patient Problems (1) Abdominal pain Current Visit: Yes Status: Acute Priority: Medium Code(s): R10.9 - UNSPECIFIED ABDOMINAL PAIN Comment: Abdominal pain resolved XR of the abd is neg for obstruction CT abd/pelvis without significant finding...small hermia but not incarcerated ( fat containing) May be her IBS/constipation (2) Chest pain Current Visit: Yes Status: Acute Priority: Medium Code(s): R07.9 - CHEST PAIN, UNSPECIFIED Comment: - No evidence of ACS or other life threatening condition - 11/13 --> was clearly associated with panic episode. (3) Depression Current Visit: Yes Status: Acute Priority: High Code(s): F32.9 - MAJOR DEPRESSIVE DISORDER, SINGLE EPISODE, UNSPECIFIED Comment: - Started on Celexa ~4 weeks ago without improvement and was c/o fatigue - Switched to Effexor while at [facility] - Psych recommends increasing dose to 75 mg (ongoing now) (4) Dizziness Current Visit: Yes Status: Acute Priority: High Code(s): R42 - DIZZINESS AND GIDDINESS Comment: - Likely psychiatric-related. no organic disease detected and clinical context is most consistent with MDD/bereavement. (5) Hyperglycemia Current Visit: Yes Status: Acute Code(s): R73.9 - HYPERGLYCEMIA, UNSPECIFIED Comment: - Noted random glucose >200 mg/dl from [facility] labs - HgbA1c 5.9% - Not diabetic. (6) Hypertension Current Visit: Yes Status: Chronic Priority: Medium Code(s): I10 - ESSENTIAL (PRIMARY) HYPERTENSION Comment: - Normotensive - Cont lisinopril (7) Syncope Current Visit: Yes Status: Acute Priority: Medium Code(s): R55 - SYNCOPE AND COLLAPSE Comment: - Likely psychogenic, psychiatry recommended increasing Effexor / long acting benzo - W/u has been negative including MRI brain, CTA head, neck & chest, echo & EEG - Dr Sargent consulted from neurology who does not believe there is a neurologic explanation for these episodes, no evidence of cardiac compromise or a metabolic process - Symptoms started after her passing of her boyfriend - Improvement noted since starting Valium Status and Disposition: W/u neg thus far. Appears symptoms are psychiatric in origin. Continued improvement, but ongoing anxiety/panic episodes. Patient lives alone and is not safe to return home alone as long as she is having intermittent episodes. One of her step daughters is available to stay with her copper plater starting Tuesday and which point she can return home.
[2016-11-13] MEDS: Enoxaparin(*) 40 MG/0.4 ML SYR SUBCUT SCH (20:10)
[2016-11-14] MEDS: Diazepam TAB(*) 5 MG PO PRN ×2 (08:06→18:35)
[2016-11-14] MEDS: Cholecalciferol TAB* 1000 UNITS PO SCH (08:06)
[2016-11-14] MEDS: Aspirin Low Dose CHEW TAB* 81 MG PO SCH (08:06)
[2016-11-14] MEDS: Venlafaxine EXT RELEASE CAP* 75 MG PO SCH (08:07)
[2016-11-14] MEDS: Lisinopril TAB* 10 MG PO SCH (08:07)
--- NOTE | 2016-11-14 17:57 | PN ---
Subjective Date of Service: 11/14/16 Interval History: feels better today. denies pain awatiing final dc plans -- I spoke briefly with "Elena" - who is the daughter of Ms. Botello's boyfriend (who recently ). Elena was the resident intern of choice for Ms. Botello, but Daly states she is unable to do this. She referred Ms. Botello to "Debra" who is Elena's sister (also the daughter of the patient's late boyfriend). This is being worked out, but I believe the patient is improving and would be stable for dc tomorrow. Family History: Unchanged from Admission Social History: Unchanged from Admission Past Medical History: Unchanged from Admission Objective Active Medications: . Aspirin (Aspirin Low Dose Tab*) 81 mg PO DAILY [facility] Last Admin: 11/14/16 08:06 Dose: 81 mg Cholecalciferol (Vitamin D Tab*) 1,000 units PO DAILY [facility] Last Admin: 11/14/16 08:06 Dose: 1,000 units Diazepam (Valium Tab(*)) 5 mg PO Q6H PRN PRN Reason: ANXIETY Last Admin: 11/14/16 08:06 Dose: 5 mg Docusate Sodium (Colace Cap*) 100 mg PO BID PRN PRN Reason: CONSTIPATION Enoxaparin Sodium (Lovenox(*)) 40 mg SUBCUT Q24H [facility] Last Admin: 11/13/16 20:10 Dose: 40 mg Lisinopril (Prinivil Tab*) 10 mg PO DAILY [facility] Last Admin: 11/14/16 08:07 Dose: 10 mg Ondansetron HCl (Zofran Inj*) 4 mg IV Q4H PRN PRN Reason: NAUSEA Last Admin: 11/13/16 15:44 Dose: 4 mg Pneumococcal Polyvalent Vaccine (Pneumococcal Vac Polyvalent*) 0.5 ml IM .ONCE ONE Stop: 11/15/16 09:01 Tramadol HCl (Ultram*) 50 mg PO Q6H PRN PRN Reason: PAIN Last Admin: 11/13/16 18:31 Dose: 50 mg Venlafaxine HCl (Effexor Xr Cap*) 75 mg PO DAILY [facility] Last Admin: 11/14/16 08:07 Dose: 75 mg . Vital Signs 1211/13/16 11/13/16 18:31 20:00 20:10 Temperature 98.0 F Pulse Rate 73 Respiratory 18 18 16 Rate Blood Pressure 134/39 (mmHg) O2 Sat by Pulse 93 Oximetry 11/13/16 11/13/16 11/13/16 20:31 21:39 23:54 Temperature 98 F 97.9 F Pulse Rate 72 Respiratory 16 20 Rate Blood Pressure 125/40 (mmHg) O2 Sat by Pulse 95 Oximetry 11/14/16 11/14/16 11/14/16 03:47 07:31 08:00 Temperature 98.3 F 98.3 F Pulse Rate 74 73 Respiratory 20 16 18 Rate Blood Pressure 133/42 121/58 (mmHg) O2 Sat by Pulse 95 95 Oximetry 11/14/16 11/14/16 11/14/16 08:06 09:57 11:36 Temperature 98.3 F Pulse Rate 69 Respiratory 18 18 20 Rate Blood Pressure 124/43 (mmHg) O2 Sat by Pulse 95 Oximetry 11/14/16 16:32 Temperature 98.0 F Pulse Rate 80 Respiratory 16 Rate Blood Pressure 144/45 (mmHg) O2 Sat by Pulse 95 Oximetry Oxygen Devices in Use Now: None Appearance: NAD now Eyes: No Scleral Icterus Ears/Nose/Mouth/Throat: NL Teeth, Lips, Gums Neck: NL Appearance and Movements; NL JVP Respiratory: Symmetrical Chest Expansion and Respiratory Effort, Clear to Auscultation Cardiovascular: NL Sounds; No Murmurs; No JVD Abdominal: NL Sounds; No Tenderness; No Distention, No Hepatosplenomegaly Lymphatic: No Cervical Adenopathy Extremities: No Edema Skin: No Rash or Ulcers Neurological: Alert and Oriented x 3 Lines/Tubes/Other Access: Clean, Dry and Intact Peripheral IV Nutrition: Taking PO's Result Diagrams: 11/10/16 19:20 11/13/16 04:48 Diagnostic Imaging: CTA head/neck - bilateral IC stenosis, <50%, otherwise nl CTA chest - no PE or other abnormality EEG - neg TTE - unremarkable, LVEF - 50-55%, no valvular dz MRI brain - chronic ischemic changes v demyelinating dz (neurology feels this is unlikely) XR abd - NAD CT abd/pevis - NAD EKG Data: NSR Assess/Plan/Problems-Billing . Assessment: This is a 66 yo female with h/o depression transferred from [facility] for recurrent episodes of LOC with dizziness and CP. Given all data, this seems to be a psychiatric response to recent loss of long time boyfriend (of 30+ years). 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 - Patient Problems (1) Abdominal pain Current Visit: Yes Status: Acute Priority: Medium Code(s): R10.9 - UNSPECIFIED ABDOMINAL PAIN Comment: Abdominal pain resolved XR of the abd is neg for obstruction CT abd/pelvis without significant finding...small hermia but not incarcerated ( fat containing) May be her IBS/constipation (2) Chest pain Current Visit: Yes Status: Acute Priority: Medium Code(s): R07.9 - CHEST PAIN, UNSPECIFIED Comment: - No evidence of ACS or other life threatening condition - 11/13 --> was clearly associated with panic episode. (3) Depression Current Visit: Yes Status: Acute Priority: High Code(s): F32.9 - MAJOR DEPRESSIVE DISORDER, SINGLE EPISODE, UNSPECIFIED Comment: - Started on Celexa ~4 weeks ago without improvement and was c/o fatigue - Switched to Effexor while at [facility] - Psych recommends increasing dose to 75 mg (ongoing now) (4) Dizziness Current Visit: Yes Status: Acute Priority: High Code(s): R42 - DIZZINESS AND GIDDINESS Comment: - Likely psychiatric-related. no organic disease detected and clinical context is most consistent with MDD/bereavement. (5) Hyperglycemia Current Visit: Yes Status: Acute Code(s): R73.9 - HYPERGLYCEMIA, UNSPECIFIED Comment: - Noted random glucose >200 mg/dl from [facility] labs - HgbA1c 5.9% - Not diabetic. (6) Hypertension Current Visit: Yes Status: Chronic Priority: Medium Code(s): I10 - ESSENTIAL (PRIMARY) HYPERTENSION Comment: - Normotensive - Cont lisinopril (7) Syncope Current Visit: Yes Status: Acute Priority: Medium Code(s): R55 - SYNCOPE AND COLLAPSE Comment: - Likely psychogenic, psychiatry recommended increasing Effexor / long acting benzo - W/u has been negative including MRI brain, CTA head, neck & chest, echo & EEG - Dr Sargent consulted from neurology who does not believe there is a neurologic explanation for these episodes, no evidence of cardiac compromise or a metabolic process - Symptoms started after her passing of her boyfriend - Improvement noted since starting Valium Status and Disposition: W/u neg thus far. Appears symptoms are psychiatric in origin. Continued improvement, but ongoing anxiety/panic episodes. Patient lives alone and is not safe to return home alone as long as she is having intermittent episodes. One of her step daughters is available to stay with her injection molding machine offbearer starting Tuesday and which point she can return home.
[2016-11-14] MEDS: Enoxaparin(*) 40 MG/0.4 ML SYR SUBCUT SCH (19:21)
[2016-11-15] MEDS: Venlafaxine EXT RELEASE CAP* 75 MG PO SCH (08:28)
[2016-11-15] MEDS: Cholecalciferol TAB* 1000 UNITS PO SCH (08:28)
[2016-11-15] MEDS: Aspirin Low Dose CHEW TAB* 81 MG PO SCH (08:28)
[2016-11-15] MEDS: Lisinopril TAB* 10 MG PO SCH (08:28)
[2016-11-15] MEDS ORDERED: Pneumococcal *Vac Polyvalent 0.5 ML VIAL IM ONE (09:00)
--- NOTE | 2016-11-15 11:27 | PN ---
Hospitalist Progress Note . HOSPITALIST DISCHARGE NOTE: See dc instructions and summary by me. Patient stable for dc dc instructions reviewed with the patient at the bedside. DC patient home today.
[2016-11-15 12:42] VITALS: BP 149/56
--- NOTE | 2016-11-16 08:09 | DS ---
DISCHARGE SUMMARY: DATE OF ADMISSION: 11/10/2016. DATE OF DISCHARGE: 11/15/2016. STATUS DURING THE HOSPITALIZATION: Inpatient. PRIMARY CARE PROVIDER: Unknown - referral to [facility]. PRINCIPAL DISCHARGE DIAGNOSIS: Major depression with complex somatization. SECONDARY DIAGNOSIS: Known depression and recent loss of long-time male partner with subsequent bereavement. DISCHARGE MEDICATION REGIMEN: 1. Venlafaxine extended release 75 mg by mouth daily (new/Rx) 2. Tramadol 50 mg by mouth every 6 hours as needed for pain - maximum daily dose 2 (Rx) 3. Lisinopril 10 mg by mouth daily for hypertension (Rx) 4. Cholecalciferol 1000 units by mouth daily for vitamin D deficiency (rx) 5. Aspirin 81 mg by mouth daily 6. Atenolol 25 mg by mouth daily. 7. Diazepam 5 mg by mouth every 6 hours as needed, not to exceed 2 per day (Rx) 8. Stop carisoprodol/aspirin/codeine. 9. Stop alprazolam. HISTORY OF PRESENT ILLNESS AND HOSPITAL COURSE: Please see the H and P by PAGE Spann under the supervision of Dr. Amrita Walters. In brief, Ms. Botello is a 66-year-old woman with history of depression and IBS who was transferred from [facility] for her current episodes of dizziness, chest pain, and syncope. 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 Initial imaging included CT of the brain, EKG, and preliminary labs were unremarkable. The patient was admitted for observation. The patient was profoundly hypertensive, treated with clonidine and atenolol for blood pressure, but continued to have intermittent episodes of severe chest pain and at least two syncopal episodes. The patient was transferred to [facility] for additional workup and and consultation with Neurology and Psychiatry. Specifically, the patient reported losing her boyfriend of over 30 years a few months ago and has been struggling with his . The patient has been taking in little oral intake, and has been having the symptoms described since the time of his . She has intermittent chest pain lasting between 1 or 2 hours, usually when she is at her greatest levels of emotional distress. The pains are substernal and don't radiate. The patient was started on Celexa for depression, but then switched to Effexor at [facility], and that was continued at [facility], but the dose was increased per psychiatry recommendations. The patient was also being treated with p.r.n. Xanax, but this was changed to Valium for its longer activity and better side effect profile in this situation. The patient started improving during the hospitalization. During the hospitalization, she also had a fairly extensive workup to rule out organic and neurologic causes of her symptomatology, including a CTA head and neck which showed only low-grade bilateral internal carotid stenoses, all rated less than 50%. The patient had a CTA chest which showed no PE or other abnormality. Her EEG was negative. Her transthoracic echocardiogram was unremarkable with a preserved ejection fraction rated between 50 to 55% with no valvular disease noted. Her MRI brain showed only chronic ischemic changes versus demyelinating disease characteristics, but Neurology consultation felt it was unlikely considering the overall presentation and the particular pattern on the MRI. Finally, a CT scan of her abdomen and pelvis was without specific pathology, and the abdominal pain was felt to be worsening of her known IBS. The patient was deemed somatizing from her complex bereavement and major depression. She accepted this idea. There was an outright panic attack that I witnessed on the morning that I took over her care - November 13, 2017. The patient responded very well to Valium. It was decided that the patient needs outpatient social support perhaps more than anything else. It was recommended that she re-engage with her social support system, which was robust prior to the loss of her significant other. The patient is very concerned about going back to her home where her significant other . She is receiving support from her family which consists of two step-daughters (actually, the daughters of her boyfriend). The patient is being discharged in stable condition with instructions to come back to the hospital if she has any emotional or psychiatric crises. She assured me she is not having any suicidal thoughts or plans or ideations. She is just profoundly sad. We talked about reengaging with friends and social support systems, and that, over time, her bereavement may subside. Hopefully, the Effexor at current dosing in addition to the assistance of the Valium will help. The patient is referred to [facility] for psychiatric followup to be scheduled in the outpatient setting. Please see the psychiatry consultation by Dr. Logan Palmer on November 11, 2016 which was a very clear and comprehensive description of her situation and challenges. TIME SPENT: Total time taken to discharge Ms. Botello was 60 minutes, greater than half that time spent in the room going over the discharge process with the patient and ensuring stability before discharge. [id number]/CPS #: [id number] GRETCHEN
[2016-11-18 13:35] LABS: Phospholipid Ab IgG < 4.0 GPL; Phospholipid Ab IgM, S < 4.0 MPL
== END 2016-11-15 15:00 | disposition home or self-care (01) | DRG 881 ==
LOC: MEDTELE 14:30
PROVIDERS: ADMIT Internal Medicine; ATTEND Internal Medicine
DX: F32.9 Major depressive disorder, single episode, unspecified (principal); R44.3 Hallucinations, unspecified; I10 Essential (primary) hypertension; F45.0 Somatization disorder; R55 Syncope and collapse; R07.9 Chest pain, unspecified; K58.9 Irritable bowel syndrome, unspecified; R73.9 Hyperglycemia, unspecified; R10.9 Unspecified abdominal pain; F41.0 Panic disorder [episodic paroxysmal anxiety]; R90.82 White matter disease, unspecified; Z80.8 Family history of malignant neoplasm of other organs or systems; Z79.82 Long term (current) use of aspirin; Z82.49 Family history of ischemic heart disease and other diseases of the circulatory system
CPT/HCPCS: 36415; 70450; 70496; 70498; 70551; 71275; 74000; 74160; 80048; 82306; 83036; 84484; 85025; 85379; 85652; 86038; 86147; 90732; 93005; 93306; 95816; A9270-GY; J1650; J2270; J2405; Q9967